=== PATIENT | male | born 1950 | race Two or more races ===

== ENCOUNTER 2020-03-19 13:00 | Outpatient (RCR) | payer MEDICARE, MEDICAID, SELFPAY ==
--- NOTE | 2020-03-21 14:20 | MHC.PT.DC ---
[facility] [place] [facility] [place] [facility] [place] [facility] [address] Aly Martino [address] [phone] F: [phone] F: [phone] F: [phone] F: [phone] Physical Therapy Discharge Report Diagnosis: POLYARTHRITIS Date of Surgery: DIAGNOSIS: POLYARTHRITIS R SHOULDER, KNEES, LBP Date of Evaluation: 02/21/20 Date of Discharge: 03/21/20 Treatments to Date: 8 Cancellations to Date: 0 No Shows to Date: 0 Discharge Status: Achieved Goals Improved Function Independent with HEP Discharge Summary: ELEANOR PROGRESSED WELL WITH PT. HE ARRIVES WITHOUT PAIN AT HIS LAST VISIT, IS ABLE TO SELF MANAGE ANY RESIDUAL SYMPTOMS AND IS INDEPENDENT WITH HIS CURRENT HOME PROGRAM. Please sign and return to therapist. Thank you for your referral.
== END 2021-02-18 10:10 | disposition home or self-care (01) ==
LOC: HO.PT 13:00
PROVIDERS: PCP Internal Medicine; Visit Provider Student in an Organized Health Care Education/Training Program
DX: M25.50 Pain in unspecified joint (principal)
CPT/HCPCS: 97110; 97530

== ENCOUNTER 2020-04-26 14:09 | Outpatient (REF) | payer MEDICARE, MEDICAID, SELFPAY | END 2020-04-26 14:10 | disposition home or self-care (01) | LOC: HO.LAB 14:09 | PROVIDERS: PCP Internal Medicine; Visit Provider Internal Medicine | DX: Z20.828 Contact with and (suspected) exposure to other viral communicable diseases (principal) | CPT/HCPCS: C9803; U0003 ==

== ENCOUNTER 2020-06-17 08:43 | Outpatient (REF) | payer MEDICARE, MEDICAID, SELFPAY | END 2020-06-17 08:44 | disposition home or self-care (01) | LOC: HO.LAB 08:43 | PROVIDERS: Visit Provider Internal Medicine | DX: Z20.822 Contact with and (suspected) exposure to COVID-19 (principal) | CPT/HCPCS: 36415; C9803; U0003 ==

== ENCOUNTER 2020-07-30 11:49 | Outpatient (REF) | payer MEDICARE, MEDICAID, SELFPAY | END 2020-07-30 11:50 | disposition home or self-care (01) | LOC: HO.LAB 11:49 | PROVIDERS: Visit Provider Internal Medicine | DX: Z20.822 Contact with and (suspected) exposure to COVID-19 (principal) | CPT/HCPCS: 36415; C9803; U0003; U0005 ==

== ENCOUNTER 2020-09-10 10:38 | Emergency (ER) | payer MEDICARE, MEDICAID, SELFPAY ==
[2020-09-10 11:05] VITALS: BP 162/76; PULSE 65; RESP 18; TEMP 36.2; O2SAT 95; BMI 33.4
[2020-09-10] MEDS: Ketorolac Tromethamine 30 MG/ML VIAL IM (11:37)
[2020-09-10] MEDS: HYDROcodone Bit/Acetam 5/325 TABLET 1 TAB PO (11:37)
--- NOTE | 2020-09-10 11:46 | ED.BACK ---
HPI - Back Pain/Injury General Chief Complaint: Back Pain/Injury Stated Complaint: BACK PAIN Time Seen by Provider: 09/10/20 11:21 Source: patient and family Mode of arrival: wheelchair Limitations: language barrier History of Present Illness HPI Narrative: 69 y/o male presenting with 1 week of right lower back pain that started after he lifted a heavy tire about 7 days ago. The pain is worsen with movement and worse in the mornings. He feels stiff and has difficulty walking around 1st thing in the morning due to the pain. He also has been having trouble getting a good nights sleep due to the pain. He has been taking Tylenol with minimal relief. He denies numbness, weakness, incontinence, fever, chills, or parethesias. MD elicited complaint: back pain and back injury Pertinent past history: prior back pain Onset (ago): day(s) (7) Timing: constant Severity: moderate Similar Symptoms Previously: Yes Quality: aching and spasming Location: right lower back Radiation: none Exacerbating factors: movement, walking and coughing/sneezing Relieving factors: immobilization Context: while lifting Associated symptoms: denies other symptoms Treatments prior to arrival: heat therapy and acetaminophen Work related injury: No Related Data Previous Rx's Medication Instructions Recorded cyclobenzaprine 10 mg PO TID PRN #10 tab 09/10/20 lidocaine [Lidoderm] 1 patch TOPICAL DAILY #15 ea 09/10/20 naproxen 500 mg PO BID PRN #20 tab 09/10/20 Allergies Allergy/AdvReac Type Severity Reaction Status Date / Time No Known Allergies Allergy Verified 09/10/20 11:07 Review of Systems Review of Systems: Constitutional: No Fever, No Chills Cardiovascular: No Chest Pain, No SOB Respiratory: No Cough, No Sputum Gastrointestinal: No Nausea, No Vomiting, No Diarrhea, No abdominal Pain Genitourinary: No Dysuria, No Urinary Frequency, No Hematuria Musculoskeletal: No joint pain, + Myalgias Skin: No Skin Lesions, No rash Neuro: No Weakness, No Numbness Heme/Lymph: No Bruising, No Lymphadenopathy PMFSH Past Medical History Attestation statement: The following information was validated with the patient. Medical History Depression High blood pressure Social History Social History Advance Directives: No Advance Directives Information Provided: No Advance Directives Date on File: 03/14/20 Physical Exam Vital Signs: Vital Signs: Last Vital Signs Temp 97.2 F 09/10/20 11:05 Pulse 65 09/10/20 11:05 Resp 18 09/10/20 11:05 BP 162/76 H 09/10/20 11:05 Pulse Ox 95 09/10/20 11:05 Body Mass Index 33.4 Appearance: Alert. Oriented X3. No acute distress. HEENT: normal inspection CVS: Normal heart rate and rhythm. Pulses normal. Respiratory: No respiratory distress. Skin: Skin warm and dry. Normal skin color. Normal skin turgor. No rashes. Back: right middle and upper lumbar soft tissue area with tenderness, no erythema or warmth. No spinal tenderness. Limited ROM due to pain Extremities: atraumatic, no LE edema Neuro: Oriented X 3. No motor deficit. No sensory deficit. Slow to stand up, steady but slow gait due to pain Course Course Course Narrative: 69 y/o male presenting with right lower back pain after heavy lifting. Exam and clinical picture consistent with muscle strain and spasm. No red flag symptoms of low back pain. Will medicate and reassess. Reevaluation(s) Reevaluation #1: Pain improved with NSAID and [place]. Will d/c on NSAID and muscle relaxer. He is stable for discharge. He agrees to follow up with his primary care doctor this week. Discharge Plan Discharge Clinical Impression: Strain of lumbar region Qualifiers: Encounter type: initial encounter Qualified Code(s): S39.012A - Strain of muscle, fascia and tendon of lower back, initial encounter Patient Disposition: Home, Self-Care Instructions: Low Back Strain (ED), Lower Back Exercises (ED) Additional Instructions: No bending, lifting or twisting. Use ice several times per day for 20 minutes at a time for the next 48 hours and then change to heat. Take medications as prescribed to help with pain and discomfort. Follow up with your Primary Care Doctor this week. If your pain worsens, if you develop new numbness, tingling, weakness, loss of function or incontinence call 911 or come back to the ER right away for evaluation. Prescriptions: New naproxen 500 mg tablet 500 mg PO BID PRN (Reason: pain) Qty: 20 RF: 0 lidocaine [Lidoderm] 5 % adhesive patch,medicated 1 patch topical DAILY Qty: 15 RF: 0 cyclobenzaprine 10 mg tablet 10 mg PO TID PRN (Reason: muscle spasm) Qty: 10 RF: 0 Print Language: Filipino
[2020-09-10 12:18] VITALS: RESP 17
== END 2020-09-10 12:24 | disposition home or self-care (01) ==
PROVIDERS: Emergency Provider Emergency Medicine; PCP Internal Medicine
DX: S39.012A Strain of muscle, fascia and tendon of lower back, initial encounter (principal); X50.0XXA Overexertion from strenuous movement or load, initial encounter; X50.9XXA Other and unspecified overexertion or strenuous movements or postures, initial encounter; Y93.9 Activity, unspecified; Y92.9 Unspecified place or not applicable; Y99.9 Unspecified external cause status
CPT/HCPCS: 96372; 99283; 99284; J1885

== ENCOUNTER 2021-03-07 11:22 | Outpatient (REF) | payer MEDICARE, MEDICAID, SELFPAY ==
[2021-03-07 12:17] LABS: MANUAL DIFF FLAG NO
[2021-03-07 12:42] LABS: Basophils Absolute Auto 0.1 X10*3/uL (0.0-0.2); Eosinophils Absolute Auto 0.1 X10*3/uL (0.0-0.4); Hematocrit 45.2 % (42-52); Imm Gran Abs Auto 0.02 X10*3/uL (0.00-0.03); Imm Gran Pct Auto 0.3 % (0.0-0.4); Lymphocytes Absolute Auto 1.8 X10*3/uL (1.2-4.9); Lymphocytes Percent Auto 30.3 % (20-40); Mean Corpuscular HGB Conc 33.2 g/dl (31.0-36.0); Mean Corpuscular Hemoglobin 29.9 pg (27.0-33.0); Mean Platelet Volume 11.7 fL (9.4-12.4); Monocytes Absolute Auto 0.7 X10*3/uL (0.1-1.2); Monocytes Percent Auto 11.4 % (2-11); Neutrophils Absolute Auto 3.3 X10*3/uL (2.0-8.3); Platelet Count 201 X10*3/uL (160-400); Red Blood Count 5.02 X10*6/uL (4.60-5.80); Red Cell Distribution Width 12.4 % (11.0-16.0); White Blood Count 5.9 X10*3/uL (4.8-10.8)
[2021-03-07 12:46] LABS: Alanine Aminotransferase 18 U/L (0-40); Albumin Level 4.1 g/dL (3.5-5.0); Alkaline Phosphatase 96 U/L (39-117); Anion Gap 11 (12-20); Aspartate Amino Transferase 18 U/L (5-37); Blood Urea Nitrogen 14 mg/dL (9-16); Calcium 9.5 mg/dL (8.4-10.2); Carbon Dioxide 28 mmol/L (22-29); Chloride 105 mmol/L (96-108); Cholesterol 133 mg/dL; Estimated Glomerular Filt Rate > 60; Glucose Random 85 mg/dL (60-115); HDL Cholesterol 45 mg/dL; LDL Cholesterol Calculated 74 mg/dl; Potassium 4.2 mmol/L (3.3-5.1); Sodium 140 mmol/L (135-145); Total Protein 6.7 g/dL (6.5-8.0); Triglycerides 73 mg/dL
[2021-03-07 13:11] LABS: Prostate Specific Antigen 5.85 ng/mL (<0.05-4.0)
== END 2021-03-07 11:23 | disposition home or self-care (01) ==
LOC: HO.LAB 11:22
PROVIDERS: PCP Internal Medicine; Visit Provider Internal Medicine
DX: Z12.5 Encounter for screening for malignant neoplasm of prostate (principal); E78.00 Pure hypercholesterolemia, unspecified; I10 Essential (primary) hypertension; M54.40 Lumbago with sciatica, unspecified side; R97.20 Elevated prostate specific antigen [PSA]
CPT/HCPCS: 36415; 80053; 80061; 84153; 85025

== ENCOUNTER → 2021-04-14 13:56 | Outpatient (BNVA) | payer MEDICARE, MEDICAID, SELFPAY | PROVIDERS: PCP Internal Medicine; Visit Provider Surgery | DX: Z12.11 Encounter for screening for malignant neoplasm of colon (principal) | CPT/HCPCS: 99202 ==

== ENCOUNTER → 2021-09-09 10:12 | Outpatient (BNVA) | payer MEDICARE, MEDICAID, SELFPAY | PROVIDERS: PCP Internal Medicine; Visit Provider Urology | DX: N40.0 Benign prostatic hyperplasia without lower urinary tract symptoms (principal); R97.20 Elevated prostate specific antigen [PSA] | CPT/HCPCS: 51798; 99212 ==

== ENCOUNTER 2021-10-17 07:11 | Day surgery (SDC) | payer MEDICARE, MEDICAID, SELFPAY ==
[2021-10-13 16:26] VITALS: BMI 31.1
--- NOTE | 2021-10-16 10:34 | P.CONAN_ITS ---
Documented by User: Katiuska Romo NP 10/16/21 10:42 HPI - Anesthesia Eval Consult details Narrative: 71yo M for Colonoscopy with Polypectomy [facility] Active Problems Active Problems: All Active Problems (Updated 09/09/21 @ 10:37 by Navin Tracy MD) Elevated PSA (Acute) BPH (benign prostatic hyperplasia) (Acute) Colon cancer screening (Acute) Past Medical History Medical History (Updated 09/09/21 @ 10:37 by Navin Tracy MD) BPH (benign prostatic hyperplasia) Colon cancer screening Depression High blood pressure Social History Social History Patient Tobacco Use Status: Former Tobacco user Quit Date: 2001 Tobacco use type: Cigarette Smoked in Last 30 Days: No Use of substances other than those prescribed or required for medical reasons: No Are you DNR?: No Advance Directives: Yes Advance Directives on File: Yes Advance Directives Date on File: 03/14/20 Meds Allergies Allergy/AdvReac Type Severity Reaction Status Date / Time No Known Allergies Allergy Verified 09/09/21 10:20 Home Medications Medication Instructions Recorded Confirmed Last Taken Type hydrochlorothiazide 12.5 mg tablet 12.5 mg PO DAILY 04/14/21 04/14/21 Unknown History rosuvastatin 40 mg tablet 40 mg PO DAILY 04/14/21 04/14/21 Unknown History sertraline 50 mg tablet 50 mg PO DAILY 04/14/21 04/14/21 Unknown History tamsulosin 0.4 mg capsule 0.4 mg PO DAILY 04/14/21 04/14/21 Unknown History diclofenac sodium 75 mg 75 mg PO BID 09/09/21 Unknown History tablet,delayed release Exam Exam Date and Time: October 16, 2021 1034 Height,Weight and Vital Signs: Height 5 ft 8 in Weight 92.986 kg Assessment and Plan Assessment Anesthesia Assessment: Chart Reviewed Documented by User: Wojciech Clark MD 10/17/21 08:11 [facility] Past Medical History Medical History (Updated 09/09/21 @ 10:37 by Navin Tracy MD) BPH (benign prostatic hyperplasia) Colon cancer screening Depression High blood pressure Family History Family history of problems with anesthesia: No Surgical History History of Problems with Anesthesia: No Social History Social History Patient Tobacco Use Status: Former Tobacco user Quit Date: 2001 Tobacco use type: Cigarette Smoked in Last 30 Days: No Use of substances other than those prescribed or required for medical reasons: No Are you DNR?: No Advance Directives: Yes Advance Directives on File: Yes Advance Directives Date on File: 03/14/20 Meds Allergies Allergy/AdvReac Type Severity Reaction Status Date / Time No Known Allergies Allergy Verified 09/09/21 10:20 Home Medications Medication Instructions Recorded Confirmed Last Taken Type hydrochlorothiazide 12.5 mg tablet 12.5 mg PO DAILY 04/14/21 04/14/21 Unknown History rosuvastatin 40 mg tablet 40 mg PO DAILY 04/14/21 04/14/21 Unknown History sertraline 50 mg tablet 50 mg PO DAILY 04/14/21 04/14/21 Unknown History tamsulosin 0.4 mg capsule 0.4 mg PO DAILY 04/14/21 04/14/21 Unknown History diclofenac sodium 75 mg 75 mg PO BID 09/09/21 Unknown History tablet,delayed release Exam Airway Mallampati Class: I TM Dist: >3cm Neck ROM: Full Denture: Upper and Lower Loose/Missing/Broken Teeth: No Heart: ok Lungs: ok Assessment and Plan Final Anesthetic Review Family History of Problems with Anesthesia: No History of Problems with Anesthesia: No NPO: Yes ASA Class: II Final Preanesthetic Review: No Changes in Pt Med Stat, Meds/Allgs Chart Reviewed, Consent Obtained/Reviewed and Anes Risks/Benef Reviewed Patient Risk: Low Procedure Risk: Low Anesthetic Plan Anesthetic Plan: MAC: and Agree w/ Assess. and Plan Disposition: Standard PACU
[2021-10-17 07:42] VITALS: BP 130/74; PULSE 63; RESP 16; TEMP 36.5; O2SAT 95; BMI 31.1
--- NOTE | 2021-10-17 08:00 | MHC.SHP ---
Pre-Procedural Eval Section A Date of Service: 10/17/21 Section B Chief Complaint: screening Details of Present Illness: For screening colonoscopy otherwise no GI complaints Relevant Social History: None Present Medications: see Short Stay Collaborative assessment Medical History: Significant History (BPH) History of Previous Operations: No relevant previous surgery Allergies: Allergies Allergy/AdvReac Type Severity Reaction Status Date / Time No Known Allergies Allergy Verified 09/09/21 10:20 Review of Systems Sugical H&P ROS: Negative: Constitution, Cardiovascular, Respiratory, Neurological, Psychiatric, Hem-Onc, Allergic/Immunologic, Gastrointestinal, Genitourinary, Musculoskeletal, Integumentary, Endocrine and Eyes/Ears/Nose/Throat Exam Surgical H&P Exam: Normal: HEENT, Normal: Heart, Normal: Lungs, Normal: Extremities, Normal: Abdomen, Normal: Skin and Normal: Neurological Plan Diagnosis/Plan: Unchanged I have reviewed the history and physical and performed a pertinent physical examination on my patient. No changes have occurred unless specified.
[2021-10-17] MEDS: Lactated Ringers 1,000 ML 100 ML IVCONT (08:08)
--- NOTE | 2021-10-17 08:39 | P.OP_ITS ---
Operative Note Operative Note Date of Service: 10/17/21 Narrative: Preop diagnosis: Colon cancer screening Postop diagnosis: Diverticulosis otherwise normal colonoscopy findings Procedure: Colonoscopy Surgeon: Jerry Kathleen MD Patient is a 71-year-old male who scheduled for screening colonoscopy. He understood the technique of the procedure. He was aware of the risks, benefits, and alternatives He was brought to the operating room and placed in left lateral decubitus pos ition under monitored anesthesia care. A full digital rectal exam was done. There were no palpable anal lesions. The tip of the Olympus colonoscope was gently introduced through the anal orifice and advanced with insufflation all the way to the cecum. The cecum was intubated. The cecum was identified by visualization of the ileocecal valve as well as the appendiceal orifice. The cecal mucosa was unremarkable. The scope was gradually withdrawn with careful examination of the entire colonic mucosa being done with scope withdrawal. The patient had good bowel prep so it was unlikely that any ceja may have been missed. There was note of scattered diverticuli throughout the entire colon mostly on the left side. The rectum was reached. There were no lesions seen. The anal canal was unremarkable. The anal shelf was unremarkable and the scope was then withdrawn completely. The patient tolerated the procedure well. There were no complications noted. Falls at average risk for colon cancer. His next colonoscopy may be in the next 10 years. Withdrawal time was about 8 minutes
[2021-10-17 08:43] VITALS: BP 102/55; PULSE 65; RESP 14; TEMP 36.1; O2SAT 94
[2021-10-17 08:58] VITALS: BP 118/74; PULSE 60; RESP 16; TEMP 36.1; O2SAT 96
== END 2021-10-17 09:09 | disposition home or self-care (01) ==
PROVIDERS: PCP Internal Medicine; Visit Provider Surgery
PROC: 0DBE8ZZ Excision of Large Intestine, Via Natural or Artificial Opening Endoscopic (ICD-10-PCS; CPT G0121; principal; 2021-10-17 08:30)
DX: Z12.11 Encounter for screening for malignant neoplasm of colon (principal); K57.30 Diverticulosis of large intestine without perforation or abscess without bleeding; I10 Essential (primary) hypertension; N40.0 Benign prostatic hyperplasia without lower urinary tract symptoms; F32.9 Major depressive disorder, single episode, unspecified; Z79.899 Other long term (current) drug therapy; Z87.891 Personal history of nicotine dependence
CPT/HCPCS: G0121

== ENCOUNTER 2022-01-19 10:08 | Outpatient (REF) | payer MEDICARE, MEDICAID, SELFPAY ==
[2022-01-19 12:14] LABS: PSA,Total (Free>4and<10) 5.06 ng/mL (0.00-4.00)
[2022-01-20 11:07] LABS: Free Prostate Spec Ag 1.3 ng/mL; Percent Free Prostate Spec Ag 25 % (calc) (>25); Prostate Specific Ag Total 5.3 ng/mL (< OR = 4.0)
== END 2022-01-19 10:09 | disposition home or self-care (01) ==
LOC: HO.LAB 10:08
PROVIDERS: PCP Internal Medicine; Visit Provider Urology
DX: Z12.5 Encounter for screening for malignant neoplasm of prostate (principal); N40.0 Benign prostatic hyperplasia without lower urinary tract symptoms
CPT/HCPCS: 36415; 84153; 84154

== ENCOUNTER → 2022-01-21 08:14 | Outpatient (BNVA) | payer MEDICARE, MEDICAID, SELFPAY | PROVIDERS: PCP Internal Medicine; Visit Provider Urology | DX: R97.20 Elevated prostate specific antigen [PSA] (principal); N40.1 Benign prostatic hyperplasia with lower urinary tract symptoms; N13.8 Other obstructive and reflux uropathy; R33.8 Other retention of urine; Z79.899 Other long term (current) drug therapy | CPT/HCPCS: Q3014 ==

== ENCOUNTER 2022-01-22 12:44 | Outpatient (REF) | payer MEDICARE, MEDICAID, SELFPAY ==
[2022-01-22 13:09] LABS: MANUAL DIFF FLAG NO
[2022-01-22 13:27] LABS: Basophils Absolute Auto 0.1 X10*3/uL (0.0-0.2); Basophils Percent Auto 0.7 % (0-2); Eosinophils Absolute Auto 0.1 X10*3/uL (0.0-0.4); Eosinophils Percent Auto 1.1 % (0-4); Hematocrit 42.3 % (42.0-52.0); Hemoglobin 14.5 g/dl (14.0-18.0); Imm Gran Abs Auto 0.02 X10*3/uL (0.00-0.03); Imm Gran Pct Auto 0.3 % (0.0-0.4); Lymphocytes Absolute Auto 1.9 X10*3/uL (1.2-4.9); Lymphocytes Percent Auto 25.4 % (20-40); Mean Corpuscular HGB Conc 34.3 g/dl (31.0-36.0); Mean Corpuscular Hemoglobin 30.1 pg (27.0-33.0); Mean Corpuscular Volume 87.8 fL (80.0-98.0); Mean Platelet Volume 10.9 fL (9.4-12.4); Monocytes Absolute Auto 0.9 X10*3/uL (0.1-1.2); Monocytes Percent Auto 11.6 % (2-11); Neutrophils Absolute Auto 4.5 x10*3/uL (2.0-8.3); Neutrophils Percent Auto 60.9 % (45-73); Platelet Count 212 X10*3/uL (160-400); Red Blood Count 4.82 X10*6/uL (4.60-5.80); Red Cell Distribution Width 12.7 % (11.0-16.0); White Blood Count 7.3 X10*3/uL (4.8-10.8)
[2022-01-22 14:08] LABS: Alanine Aminotransferase 30 U/L (0-40); Albumin Level 4.4 g/dL (3.5-5.0); Alkaline Phosphatase 101 U/L (39-117); Anion Gap 15 (12-20); Aspartate Amino Transferase 22 U/L (5-37); Bilirubin Total 1.1 mg/dL (0.0-1.0); Blood Urea Nitrogen 18 mg/dL (9-16); Calcium 9.8 mg/dL (8.4-10.2); Carbon Dioxide 28 mmol/L (22-29); Chloride 100 mmol/L (96-108); Cholesterol 147 mg/dL; Estimated Glomerular Filt Rate > 60; Glucose Random 89 mg/dL (60-115); HDL Cholesterol 54 mg/dL; LDL Cholesterol Calculated 76 mg/dl; Potassium 4.7 mmol/L (3.3-5.1); Sodium 138 mmol/L (135-145); Total Protein 7.4 g/dL (6.5-8.0); Triglycerides 87 mg/dL
== END 2022-01-22 12:45 | disposition home or self-care (01) ==
LOC: HO.LAB 12:44
PROVIDERS: PCP Internal Medicine; Visit Provider Internal Medicine
DX: E78.00 Pure hypercholesterolemia, unspecified (principal); I10 Essential (primary) hypertension; M17.9 Osteoarthritis of knee, unspecified; M47.812 Spondylosis without myelopathy or radiculopathy, cervical region; N40.0 Benign prostatic hyperplasia without lower urinary tract symptoms
CPT/HCPCS: 36415; 80053; 80061; 85025

== ENCOUNTER 2022-04-09 15:02 | Emergency (ER) | payer MEDICARE, MEDICAID, SELFPAY ==
--- NOTE | ~2022-04-09 | XR_ITS ---
EXAMINATION: XR KNEE, RIGHT CLINICAL INFORMATION: Right knee pain. COMPARISON: Right knee radiographs dated 02/08/2020 TECHNIQUE: Four views of the right knee. FINDINGS: Mild tricompartmental degenerative joint changes are seen most pronounced in the medial femoral-tibial and patellofemoral joint spaces. There is no acute fracture or dislocation. No significant joint effusion. Mild prepatellar soft tissue swelling. XR/XR knee RT 4V IMPRESSION: 1. Mild tricompartmental degenerative joint changes most consistent with osteoarthritis. 2. Mild prepatellar soft tissue swelling without acute underlying osseous abnormality. This is similar to the 2019 study.
[2022-04-09 15:05] VITALS: BP 119/55; PULSE 66; RESP 18; TEMP 36.4; O2SAT 96; BMI 31.1
--- NOTE | 2022-04-09 17:38 | ED.EXTPRO ---
HPI - Extremity Problem General Chief complaint: Extremity Problem Stated complaint: pain in R leg Time Seen by Provider: 04/09/22 17:38 Source: patient Mode of arrival: ambulatory (With cane) Limitations: no limitations History of Present Illness HPI Narrative: 71-year-old male presents with 3 weeks of right knee pain. States that he has difficult time ambulating because of the pain, and feels that his knee is going to give out. He does not report any injury, trauma, denies fevers, chills, swelling. MD Complaint: extremity pain Onset (ago): week(s) (3) Pain Consistency: constant Location: right, lower extremity and knee Severity scale (1-10): 8 Quality: aching Radiation: none Relieving factors: rest Exacerbating factors: range of motion, weight bearing, walking and exertion Associated symptoms: denies other symptoms Related Data Home Medications Medication Instructions Recorded Confirmed hydrochlorothiazide 12.5 mg tablet 12.5 mg PO DAILY 04/14/21 04/14/21 rosuvastatin 40 mg tablet 40 mg PO DAILY 04/14/21 04/14/21 sertraline 50 mg tablet 50 mg PO DAILY 04/14/21 04/14/21 diclofenac sodium 75 mg 75 mg PO BID 09/09/21 tablet,delayed release Previous Rx's Medication Instructions Recorded cyclobenzaprine 10 mg tablet 10 mg PO TID PRN muscle spasm #10 09/10/20 tabs lidocaine 5 % topical patch 1 patch topical DAILY #15 ea 09/10/20 (Lidoderm) naproxen 500 mg tablet 500 mg PO BID PRN pain #20 tabs 09/10/20 sodium,potassium,mag sulfates 17.5 See Rx Instructions PO .COMPLEX 04/14/21 gram-3.13 gram-1.6 gram oral soln #354 mL (Suprep Bowel Prep Kit) finasteride 5 mg tablet 5 mg PO DAILY 90 days #90 tabs 01/21/22 tamsulosin 0.4 mg capsule 0.4 mg PO DAILY 90 days #90 caps 01/21/22 diclofenac sodium 1 % topical gel 2 g topical QID #100 grams 04/09/22 (Arthritis Pain (diclofenac)) Allergies Allergy/AdvReac Type Severity Reaction Status Date / Time No Known Allergies Allergy Verified 01/20/22 11:17 Review of Systems Review of Systems: Constitutional: No Fever, No Chills ENT/Mouth: No Ear Pain, No Hoarseness, No sore throat Eyes: No Eye Pain, No Swelling, No Redness, No Foreign Body Cardiovascular: No Chest Pain, No SOB Respiratory: No Cough, No Dyspnea Gastrointestinal: No Nausea, No Vomiting, No Diarrhea, No abdominal Pain Genitourinary: No Dysuria, No Hematuria Musculoskeletal: positive right knee pain, No Myalgias, No Joint Swelling Skin: No Skin lacerations, No rash Neuro: No Weakness, No Numbness, No Paresthesias, No Loss of Consciousness, No Dizziness, No Headache Psych: No Anxiety/Panic, No Depression Heme/Lymph: no easy bruising, no Lymphadenopathy Endocrine: No Polyuria, No Polydipsia Yes all other systems are reviewed and are negative [facility] Past Medical History Attestation statement: The following information was validated with the patient. Source: old records reviewed Medical History BPH (benign prostatic hyperplasia) Colon cancer screening Depression High blood pressure Social History Social History Patient Tobacco Use Status: Former Tobacco user Quit Date: 2001 Tobacco use type: Cigarette Advance Directives: No Advance Directives Information Provided: Yes Advance Directives Date on File: 03/14/20 Physical Exam Vital Signs: Vital Signs: Last Vital Signs Temp 97.6 F 04/09/22 15:05 Pulse 66 04/09/22 15:05 Resp 18 04/09/22 15:05 BP 119/55 L 04/09/22 15:05 Pulse Ox 96 04/09/22 15:05 O2 Del Method 04/09/22 15:05 BMI result Body Mass Index 31.1 Appearance: Alert. Oriented X3. No acute distress. Eyes: Pupils equal, round and reactive to light. ENT: Pharynx normal. Neck: Normal inspection. Neck supple. CVS: Normal heart rate and rhythm. Pulses normal. Respiratory: No respiratory distress. Breath sounds normal. Abdomen: Soft and nontender. Skin: Skin warm and dry. Normal skin color. Normal skin turgor. Extremities: No lower extremity edema. Full range of motion to all extremities. Ambulatory with cane. Brisk capillary refill equal pulses bilaterally. Neuro: No motor deficit. No sensory deficit. Cranial nerves 2-12 intact. Course Course Course Narrative: 71-year-old male presents for evaluation of right knee pain gradually worsening over the past 3 weeks. X-rays were completed while patient was in the emergency department waiting room. Patient is afebrile, appears nontoxic, has stable vital signs, and denies traumatic injury. There is no appreciable swelling, erythema, or bruising noted. He has been taking Motrin for the pain with poor effect. 17:39 x-rays indicate tricompartmental degenerative joint changes, most consistent with osteoarthritis. No significant changes since 2019. Plan of care is to refer to orthopedics for possible surgical arthroscopic consult. I did order Voltaren topical gel, and suggested supportive measures. resident hall director utilized for all correspondence. Google translate utilized for discharge instructions. Patient verbalized understanding of and agrees to plan of care discharge home. Verbalized understanding of signs symptoms indicating need for emergent intervention. MDM - Extremity (Nontraumatic) MDM Narrative Medical decision making narrative: Dislocation, effusion, arthritis Differential Diagnosis Differential diagnosis: Likely cellulitis Medical Records Attestation: I reviewed the patient's medical records. Imaging Data Knee x-ray: Attestation: I personally reviewed and interpreted this imaging study as follows: Radiologist's impression: EXAMINATION: XR KNEE, RIGHT? CLINICAL INFORMATION: Right knee pain.? COMPARISON: Right knee radiographs dated 02/08/2020? TECHNIQUE: Four views of the right knee. FINDINGS: Mild tricompartmental degenerative joint changes are seen most pronounced in the medial femoral-tibial and patellofemoral joint spaces. There is no acute fracture or dislocation. No significant joint effusion. Mild prepatellar soft tissue swelling.? XR/XR knee RT 4V IMPRESSION: ? 1. Mild tricompartmental degenerative joint changes most consistent with osteoarthritis. 2. Mild prepatellar soft tissue swelling without acute underlying osseous abnormality. This is similar to the 2020 study. Discharge Plan Discharge Clinical Impression: Osteoarthritis Patient Disposition: Home, Self-Care Instructions: Osteoarthritis (ED) Additional Instructions: Le evaluaron por dolor en la rodilla derecha. Las radiograf?as indican osteoartritis. Por favor, seguimiento con ortopedia. Lo he referido al Dr. Call. Por favor llame y solicite ayo ananya. Use el gel t?dameon de diclofenaco seg?n las indicaciones. Contin?e tomando todos bev medicamentos seg?n lo prescrito. Audrey por elegir zain departamento de emergencias para harmon evaluaci?n. Por favor, rachana un seguimiento con el m?dico de atenci?n primaria seg?n sea necesario. Regrese al departamento de emergencias por cualquier s?ntoma nuevo, preocupante o que empeore. You were evaluated for right knee pain. X-rays indicate osteoarthritis. Please follow-up with orthopedics. I have referred you to Dr. Call. Please call and request an appointment. Use diclofenac topical gel as directed. Continue to take all your medications as prescribed. Thank you for choosing this emergency department for evaluation. Please follow-up with primary care physician as needed. Return to the emergency department for any new, concerning, or worsening symptoms. Prescriptions: New diclofenac sodium [Arthritis Pain (diclofenac)] 1 % gel 2 g topical QID Qty: 100 2RF Rx Instructions: Apply to knees No Action naproxen 500 mg tablet 500 mg PO BID PRN (Reason: pain) Qty: 20 0RF lidocaine [Lidoderm] 5 % adhesive patch,medicated 1 patch topical DAILY Qty: 15 0RF Rx Instructions: leave on most painful area for up to 12 hrs cyclobenzaprine 10 mg tablet 10 mg PO TID PRN (Reason: muscle spasm) Qty: 10 0RF rosuvastatin 40 mg tablet 40 mg PO DAILY hydrochlorothiazide 12.5 mg tablet 12.5 mg PO DAILY sertraline 50 mg tablet 50 mg PO DAILY Suprep Bowel Prep Kit 17.5-3.13-1.6 gram recon soln See Rx Instructions PO .COMPLEX Qty: 354 0RF Rx Instructions: DILUTE; drink full amount early evening before AND next morning at least 2 hr before procedure; follow w 32 oz. water PO tamsulosin 0.4 mg capsule 0.4 mg PO DAILY 90 Days Qty: 90 1RF finasteride 5 mg tablet 5 mg PO DAILY 90 Days Qty: 90 1RF diclofenac sodium 75 mg tablet,delayed release (DR/EC) 75 mg PO BID Referrals: Ike Call MD [Physician] - 5 days (Osteoarthritis) Interventions: ED Discharge Assessment Last Done: 04/09/22 18:47 Discharge Date/Time: 04/09/22 18:48
== END 2022-04-09 18:48 | disposition home or self-care (01) ==
PROVIDERS: Emergency Provider Emergency Medicine; PCP Internal Medicine
DX: M17.11 Unilateral primary osteoarthritis, right knee (principal)
CPT/HCPCS: 73564; 99282; 99283

== ENCOUNTER → 2022-04-17 11:10 | Outpatient (BNVA) | payer MEDICARE, MEDICAID, SELFPAY | PROVIDERS: PCP Internal Medicine; Visit Provider Orthopaedic Surgery | DX: M17.11 Unilateral primary osteoarthritis, right knee (principal); M25.561 Pain in right knee | CPT/HCPCS: 20610; 99212; J1100 ==

== ENCOUNTER 2022-07-20 13:02 | Outpatient (REF) | payer MEDICARE, MEDICAID, SELFPAY ==
--- NOTE | ~2022-07-20 | XR_ITS ---
EXAMINATION: XR PELVIS CLINICAL INFORMATION: Pain. COMPARISON: None TECHNIQUE: AP view of the pelvis. FINDINGS: There is bony demineralization. The bilateral acetabular joint spaces are well-maintained. There is subchondral sclerosis and peripheral osteophyte formation of the acetabular roofs. The femoral heads appear smooth. No fracture or dislocation is seen bilaterally. The sacroiliac joints are symmetric and well-maintained, and the pubic symphysis is intact. There is a left pelvic phlebolith. XR/XR pelvis 1-2V IMPRESSION: There is mild to moderate osteoarthritic change of the bilateral hips. No fracture or dislocation is seen.
== END 2022-07-20 13:03 | disposition home or self-care (01) ==
LOC: HO.HOSX 13:02
PROVIDERS: PCP Internal Medicine; Visit Provider Orthopaedic Surgery
DX: M17.11 Unilateral primary osteoarthritis, right knee (principal)
CPT/HCPCS: 72170; 99212; J1100

== ENCOUNTER 2022-07-27 07:57 | Outpatient (REF) | payer MEDICARE, MEDICAID, SELFPAY ==
[2022-07-27 09:31] LABS: PSA,Total (Free>4and<10) 7.25 ng/mL (0.00-4.00)
[2022-07-28 10:19] LABS: Free Prostate Spec Ag 1.5 ng/mL; Percent Free Prostate Spec Ag 18 % (calc) (>25); Prostate Specific Ag Total 8.2 ng/mL (< OR = 4.0)
== END 2022-07-27 07:58 | disposition home or self-care (01) ==
LOC: HO.LAB 07:57
PROVIDERS: PCP Internal Medicine; Visit Provider Urology
DX: Z12.5 Encounter for screening for malignant neoplasm of prostate (principal); N40.1 Benign prostatic hyperplasia with lower urinary tract symptoms; N13.8 Other obstructive and reflux uropathy; R97.20 Elevated prostate specific antigen [PSA]
CPT/HCPCS: 36415; 84153; 84154

== ENCOUNTER → 2022-07-31 10:04 | Outpatient (BNVA) | payer MEDICARE, MEDICAID, SELFPAY | PROVIDERS: PCP Internal Medicine; Visit Provider Urology | DX: R97.20 Elevated prostate specific antigen [PSA] (principal); N40.0 Benign prostatic hyperplasia without lower urinary tract symptoms | CPT/HCPCS: Q3014 ==

== ENCOUNTER → 2022-08-04 10:12 | Outpatient (BNVA) | payer MEDICARE, MEDICAID, SELFPAY | PROVIDERS: PCP Internal Medicine; Visit Provider Internal Medicine Rheumatology | DX: M17.11 Unilateral primary osteoarthritis, right knee (principal); M79.641 Pain in right hand; M79.642 Pain in left hand; M19.041 Primary osteoarthritis, right hand; M19.042 Primary osteoarthritis, left hand | CPT/HCPCS: 36415; 82565; 84520; 85652; 86140; 86200; 86431; 86617; 86618; 99202 ==

== ENCOUNTER 2022-08-04 11:26 | Outpatient (REF) | payer MEDICARE, MEDICAID, SELFPAY ==
[2022-08-04 14:01] LABS: Blood Urea Nitrogen 15 mg/dL (9-16); Estimated Glomerular Filt Rate > 60
[2022-08-04 14:29] LABS: Erythrocyte Sedimentation Rate 2 MM/HR (0-15)
[2022-08-04 14:34] LABS: Rheumatoid Factor < 13.0 IU/mL (<15.0)
[2022-08-05 13:03] LABS: Lyme Abs Screen <0.90 index
[2022-08-07 12:38] LABS: Cyclic Citrullinated Peptide <16 UNITS
== END 2022-08-04 11:27 | disposition home or self-care (01) ==
LOC: HO.10HDL 11:26
PROVIDERS: Absent Provider Urology; Visit Provider Internal Medicine Rheumatology
DX: Z13.89 Encounter for screening for other disorder (principal)
CPT/HCPCS: 36415; 82565; 84520; 85652; 86140; 86200; 86431; 86617; 86618

== ENCOUNTER → 2022-08-27 12:54 | Outpatient (BNVA) | payer MEDICARE, MEDICAID, SELFPAY | PROVIDERS: PCP Internal Medicine; Visit Provider Orthopaedic Surgery | DX: M17.11 Unilateral primary osteoarthritis, right knee (principal) | CPT/HCPCS: 20610; 99212; J7318 ==

== ENCOUNTER → 2022-09-11 15:25 | Outpatient (BNVA) | payer MEDICARE, MEDICAID, SELFPAY | PROVIDERS: PCP Internal Medicine; Visit Provider Urology | DX: R97.20 Elevated prostate specific antigen [PSA] (principal); N40.0 Benign prostatic hyperplasia without lower urinary tract symptoms | CPT/HCPCS: 99212 ==